=== PATIENT | female | born 1950 | race Caucasian/White ===

== ENCOUNTER 2020-12-04 18:38 | Observation (INO) | payer MEDICARE, SELFPAY ==
[2020-12-04] VITALS (34 sets, daily range): BP systolic 94–150; BP diastolic 50–94; PULSE 65–87; RESP 14–18; TEMP 36.2–36.8; O2SAT 86–99; BMI 28.6; BMI 28.7
[2020-12-04] MEDS: Lactated Ringers 1,000 ML 100 ML IV ×2 (06:57→14:39)
--- NOTE | 2020-12-04 08:00 | VOCOB_PTH ---
PATIENT: LUCÍA GOOD LOC: [facility] U#:[id number] AGE/SX: 70/F ROOM: PA315 RE12/04/[address]: Dr. 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 Moderate to focal severe squamous mucosal atypia. Negative for acid-fast bacilli and fungal organisms. See comment. AM:christian 12/07/2020 COMMENT AFB and GMS stains with matched controls were used in the evaluation of this case. Case has been reviewed in consultation with Dr. Saenz who concurs with the above diagnosis. IDC:SJ MICROSCOPIC DESCRIPTION Slides are reviewed. GROSS DESCRIPTION Received in fixative is one container labeled with the patient's name and designated right vocal cord. The specimen consists of multiple irregular fragments of light briggs soft tissue that in aggregate measure 0.1 x 0.1 x <0.1 cm. The specimen is totally submitted in one cassette. / AM:christian 12/04/20 TC:0 CPT: 45941, 07408 x2
--- NOTE | 2020-12-04 08:40 | PCM.OPRPT ---
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 This was excised and identified as an squamous cell carcinoma. She advised to return for definitive resection with CO2 laser and was agreeable to proceed. The risks, alternatives, potential complications, and benefits were discussed at length and any questions answered to the patient and/or caregiver's satisfaction. Witnessed informed consent was obtained in the office, and the patient and/or caregiver was agreeable to proceed. Procedure went as follows: The patient was identified in the preoperative holding and brought to the operating room, placed under general anesthesia, and intubated. When appropriate anesthesia was obtained, the head of bed was rotated and the patient prepped and draped in usual sterile fashion. A dental guard was then placed to protect the upper gums and the Dedo laryngoscope then introduced. Direct laryngoscopy was then carried out. The lateral posterior pharyngeal wall mucosa, tonsillar fossa, vallecula, piriforms, and epiglottis were noted to be normal in appearance. The true and false vocal folds were then brought into view. The patient was then placed in suspension and the operative microscope brought into the field. Using pledgets soaked in a 50-50 mixture of oxymetazoline and 4% topical lidocaine the true vocal folds were then topicalized. There is noted to be a friable lesion superficially along the midportion of the right true vocal fold. This was then removed with a cup forceps and sent for permanent pathologic specimen. The CO2 laser was then armed and after ensuring all the operating room staff had appropriate eye covering the surface mucosa of the right true vocal fold was then vaporized with the smoke evacuated with a suction. This extended from the anterior commissure superficially preserving the vocal ligament. Only superficial mucosal abnormality was noted and treatment with a resurfacing type procedure was performed. Upon completion the area was then topicalized with oxymetazoline 4% lidocaine soaked pledget. The pledgets were then removed and the patient taken out of suspension and returned to anesthesia, was revived, and extubated without complication having tolerated the procedure well. Surgeon: Leon Cid Type of Anesthesia: General Anesthesiologist: Jose Juan Jones Specimen's removed: right vocal fold lesion Drains: none Estimated Blood Loss (mL): 0 mL Fluids Replaced: 700 mL Grafts/Implants Used: none Complications none Admit VTE Documentation VTE Present on Admission: No VTE Mechan Device Prophylaxis: SCD's VTE Pharm Prophylaxis ordered?: No
[2020-12-04] MEDS: Lidocaine 4% 50 ML Bottle (08:45)
[2020-12-04] MEDS: Oxymetazoline 0.05% 1 SPRAY SPRAY.BTL 15 SPRAY (08:45)
--- NOTE | 2020-12-04 08:48 | PCM.DC ---
Discharge Instructions Diet Discharge Diet: No restrictions Activity Discharge Activity: Return to Normal Activity Dressing / Incision Call your doctor if you observe: Fever of 101 or Higher and Uncontrolled pain Follow Up Care Please Follow Up With: kourtney When: 2 weeks in [place] office Test Results: Test results from this visit will be discussed in further detail at your follow-up appointment, if applicable. Discharge Plan Admission Primary Reason for Your Visit: Carcinoma of right vocal fold Attending Provider: Leon Cid Discharge Orders/Prescriptions Prescriptions: Continued atorvastatin 40 mg tablet 40 mg PO QHS RF: 0 clopidogrel 75 mg tablet 75 mg PO DAILY RF: 0 omeprazole 40 mg Capsule,Delayed Release(Dr/Ec) 40 mg PO DAILY RF: 0 amitriptyline 50 mg tablet 50 mg PO QHS RF: 0 naproxen 500 mg Tablet,Delayed Release (Dr/Ec) 500 mg PO Q12H PRN (Reason: Pain) RF: 0 duloxetine 60 mg capsule,delayed release(DR/EC) 60 mg PO DAILY RF: 0 acetaminophen [Tylenol] 325 mg Capsule 325 mg PO Q6H PRN (Reason: Pain) RF: 0 cholecalciferol (vitamin D3) [Vitamin D3] 50 mcg (2,000 unit) Tablet 50 mcg PO DAILY RF: 0 Referrals / Follow Up: [facility] [Other] Disposition Discharge Orders: Discharge Patient (Routine); Ordered 12/04/20 Ordered By: Dr. Leon Cid
[2020-12-04] MEDS: Ipratropium/Albuterol Sulfate 3 ML AMPUL.NEB INHALATION (10:10)
--- NOTE | 2020-12-04 11:00 | RAD_ITS ---
STUDY: X-RAY CHEST REASON FOR EXAM: Female, 70 years old. Low spo2 postop TECHNIQUE: AP and lateral views of the chest. COMPARISON: None. FINDINGS: Mild increased markings at the lung bases suggestive of either linear atelectasis and/or scarring. There is no demonstrated pleural abnormality. There is moderate cardiac enlargement. Normal mediastinum and lori. Normal visualized pulmonary arteries. Normal visualized aortic arch and descending thoracic aorta. There are degenerative changes of the visualized thoracic spine. Normal visualized ribs, clavicles, and shoulders. Large hiatal hernia. RAD/Chest PA and Lateral IMPRESSION: Large hiatal hernia. Minimal increased markings at the lung bases suggestive of linear atelectasis and/or scarring. Electronically Signed: Rafi Oneill MD at 11:33 EDT , Service support ,
--- NOTE | 2020-12-04 11:27 | SUR.PHASEI ---
RETURNED TO PACU FROM RADIOLOGY AT 1120
[2020-12-04 13:10] LABS: Hematocrit 46.4 % (37-47); Hemoglobin 12.9 g/dL (12.0-15.0); Mean Corp Hgb Conc 27.8 g/dL (32-36); Mean Corpuscular Hgb 29.5 pg (27.0-32.0); Mean Corpuscular Volume 106.2 fL (81-99); Mean Platelet Vol. 11.3 fl (6.2-12.0); Platelet Count 173 K/mm3 (150-450); RBC Distribution Width SD 50.9 fl (35.1-43.9); Red Blood Count 4.37 M/mm3 (4.2-5.4); White Blood Count 6.3 K/mm3 (4.4-11.0)
[2020-12-04 15:53] LABS: D-Dimer Quantitative (DVT/PE) 2.03 FEU/ug/m (0.27-0.49)
--- NOTE | 2020-12-04 16:08 | SUR.PHASEII ---
WILL HOLD PT IN AC UNTIL PCR COVID RESULTED. NO SOB OCC COUGH
--- NOTE | 2020-12-04 16:37 | CT_ITS ---
EXAM: CT ANGIOGRAPHY CHEST WITHOUT AND WITH INTRAVENOUS CONTRAST : 1950 CLINICAL INDICATION: dyspnea TECHNIQUE: Helically acquired angiography images were obtained of the chest without and with intravenous contrast. This CT exam was performed using one or more of the following dose reduction techniques: automated exposure control, adjustment of the mA and/or kV according to patient size, and/or use of iterative reconstruction technique. This report was created using [employer] report generation technology. MIP reconstructed images were created and reviewed. CONTRAST: IV 100mL Isovue-370 COMPARISON: None. FINDINGS: PULMONARY ARTERIES: Unremarkable. Normal in caliber. No evidence of pulmonary embolism. AORTA: Patient has a right-sided aortic arch which is an anatomic variant. Normal in caliber. No evidence of dissection. GREAT VESSELS OF AORTIC ARCH: Unremarkable. Normal in caliber. No evidence of dissection. LUNGS AND PLEURAL SPACES: There is consolidation in the left lower lobe which may represent atelectasis. No mass. No pleural effusion or thickening. No pneumothorax. HEART: Unremarkable. Heart size is normal. No pericardial effusion. No signs of right heart strain. MEDIASTINUM: There is a large hiatal hernia. No mediastinal or hilar adenopathy. Esophagus is unremarkable. THYROID: Unremarkable. No thyroid lesions. BONES/JOINTS: Unremarkable. No suspicious lytic or blastic abnormality. CT/CTA Chest W/WO Contrast IMPRESSION: 1. No evidence of pulmonary embolus. 2. Large hiatal hernia. There is consolidation of the left base compatible with atelectasis. 3. Right-sided aortic arch. Individualized dose optimization techniques were used for this CT. at 1832 Reported and signed by: Dario Samayoa MD Electronically Signed: Dario Samayoa MD at 18:30 EDT Tel , Service support ,
[2020-12-04 17:28] LABS: Anion Gap 7 (5-15); BUN 12 mg/dL (7-18); BUN/Creat Ratio 13.9 RATIO (10-20); Calcium,Total 8.9 mg/dL (8.5-10.1); Chloride 108 mmol/L (98-107); Creatinine, Serum 0.86 mg/dL (0.55-1.02); EST Glomerular Filtration Rate 69 mL/min (>60); Est Glom Filt Rate - Afr Amer 84 mL/min (>60); Estimated Creatinine Clearance 51.79 ml/min; Glucose 155 mg/dL (74-106); Potassium 4.1 mmol/L (3.5-5.1); Sodium Level 141 mmol/L (136-145)
--- NOTE | 2020-12-04 18:38 | HP.PCM.HOS_ITS ---
HPI - General General Date of Admission: 12/04/20 Date of Service: 12/04/20 Chief Complaint: hypoxia HPI Narrative LUCÍA GOOD, is a 70 F who presents hypoxia. Today, the patient underwent CO2 laser excision of right true vocal cord fold carcinoma. In the PACU, patient was noted to be hypoxic and even with ambulation patient was even worse and was tachycardic. Patient was symptomatic 2. Patient does note that she has had a history of shortness of breath but upon discussing with Dr. Cid, patient was stable when she was initially evaluated. They will monitor the patient in the PACU for several hours and patient's oxygenation would fluctuate and she would become hypoxic just with talking while in bed. The hospital service was contacted for admission because of the hypoxia and patient does not have any oxygen at home. COUNT INCLUDES THE [facility] Medical History Anemia Arthritis Cancer Cerebral vasculitis Chronic cough COPD (chronic obstructive pulmonary disease) Emphysema, unspecified Former smoker Gastric reflux History of hiatal hernia History of left foot drop Hoarseness Injury of head and neck Shortness of breath on exertion Stroke/cerebrovascular accident Wears glasses Wears partial dentures Home Medications acetaminophen [Tylenol] 325 mg PO Q6H PRN 11/26/20 [History Last Taken Unknown] amitriptyline 50 mg PO QHS 11/26/20 [History Last Taken Unknown] atorvastatin 40 mg PO QHS 11/26/20 [History Last Taken Unknown] cholecalciferol (vitamin D3) [Vitamin D3] 50 mcg PO DAILY 11/26/20 [History Last Taken Unknown] clopidogrel 75 mg PO DAILY 11/26/20 [History Last Taken Unknown] duloxetine 60 mg PO DAILY 11/26/20 [History Last Taken Unknown] naproxen 500 mg PO Q12H PRN 11/26/20 [History Last Taken Unknown] omeprazole 40 mg PO DAILY 11/26/20 [History Last Taken Unknown] Allergy/AdvReac Type Severity Reaction Status Date / Time methadone Allergy Swelling Verified 12/04/20 06:50 pregabalin [From Lyrica] Allergy Swelling Verified 12/04/20 06:50 Surgical History History of surgery on arm History of vocal cord polypectomy Hx of colonoscopy Hx of foot operation Hx of hysterectomy Hx of skin graft Social History Smoking Status: Former smoker ROS ROS Narrative All review of systems were negative except as mentioned above in the history of present illness and the other review of systems. Vital Signs Vital Signs Vital Signs: 12/04/20 06:51 12/04/20 09:00 12/04/20 09:15 Temperature 36.2 C L 36.2 C L Temperature Source Temporal Temporal Pulse Rate 66 66 67 Respiratory Rate 16 14 16 Respiratory Pattern Normal Normal Blood Pressure 135/66 H 150/90 H 127/73 H Blood Pressure Mean 89 110 91 Blood Pressure Source Monitor Monitor Blood Pressure Position Semi-Fowlers Semi-Fowlers Semi-Fowlers Blood Pressure Location Right Arm Right Arm Right Arm Baseline BP 135/66 135/66 Pulse Ox 98 94 95 Oxygen Delivery Method Room Air Simple Mask Nasal Cannula Oxygen Flow Rate (L/min) 8 4 12/04/20 09:30 12/04/20 09:45 12/04/20 10:00 Temperature Temperature Source Pulse Rate 77 76 70 Respiratory Rate 16 16 16 Respiratory Pattern Blood Pressure 127/85 H 105/62 116/65 Blood Pressure Mean 99 76 82 Blood Pressure Source Monitor Monitor Monitor Blood Pressure Position Semi-Fowlers Semi-Fowlers Semi-Fowlers Blood Pressure Location Right Arm Right Arm Right Arm Baseline BP 135/66 135/66 135/66 Pulse Ox 91 91 90 Oxygen Delivery Method Nasal Cannula Nasal Cannula Nasal Cannula Oxygen Flow Rate (L/min) 4 4 4 12/04/20 10:10 12/04/20 10:15 12/04/20 10:30 Temperature Temperature Source Pulse Rate 69 67 65 Respiratory Rate 16 14 16 Respiratory Pattern Normal Blood Pressure 116/68 95/50 L Blood Pressure Mean 84 65 Blood Pressure Source Monitor Monitor Blood Pressure Position Semi-Fowlers Semi-Fowlers Blood Pressure Location Right Arm Right Arm Baseline BP 135/66 135/66 Pulse Ox 98 94 Oxygen Delivery Method Simple Mask Nasal Cannula Oxygen Flow Rate (L/min) 10 6 12/04/20 10:45 12/04/20 11:00 12/04/20 11:15 Temperature Temperature Source Pulse Rate 69 72 70 Respiratory Rate 16 16 14 Respiratory Pattern Blood Pressure 98/62 126/78 H 132/60 H Blood Pressure Mean 74 94 84 Blood Pressure Source Monitor Monitor Monitor Blood Pressure Position Semi-Fowlers Semi-Fowlers Semi-Fowlers Blood Pressure Location Right Arm Right Arm Right Arm Baseline BP 135/66 135/66 135/66 Pulse Ox 90 91 92 Oxygen Delivery Method Nasal Cannula Nasal Cannula Nasal Cannula Oxygen Flow Rate (L/min) 4 4 4 12/04/20 11:20 12/04/20 11:30 12/04/20 11:45 Temperature Temperature Source Pulse Rate 74 72 72 Respiratory Rate 16 16 16 Respiratory Pattern Blood Pressure 121/63 H 122/75 H 131/67 H Blood Pressure Mean 82 90 88 Blood Pressure Source Monitor Monitor Monitor Blood Pressure Position Semi-Fowlers Semi-Fowlers Semi-Fowlers Blood Pressure Location Right Arm Right Arm Right Arm Baseline BP 135/66 135/66 135/66 Pulse Ox 97 93 92 Oxygen Delivery Method Room Air Nasal Cannula Nasal Cannula Oxygen Flow Rate (L/min) 2 2 12/04/20 12:00 12/04/20 12:15 12/04/20 12:30 Temperature Temperature Source Pulse Rate 77 82 79 Respiratory Rate 16 16 16 Respiratory Pattern Blood Pressure 120/76 94/78 113/94 H Blood Pressure Mean 90 83 100 Blood Pressure Source Monitor Monitor Monitor Blood Pressure Position Semi-Fowlers Semi-Fowlers Semi-Fowlers Blood Pressure Location Right Arm Right Arm Right Arm Baseline BP 135/66 135/66 135/66 Pulse Ox 86 95 88 Oxygen Delivery Method Room Air Nasal Cannula Room Air Oxygen Flow Rate (L/min) 2 12/04/20 12:45 12/04/20 13:00 12/04/20 13:15 Temperature Temperature Source Pulse Rate 80 82 81 Respiratory Rate 16 16 16 Respiratory Pattern Blood Pressure 113/76 111/74 131/67 H Blood Pressure Mean 88 86 88 Blood Pressure Source Monitor Monitor Monitor Blood Pressure Position Semi-Fowlers Semi-Fowlers Semi-Fowlers Blood Pressure Location Right Arm Right Arm Right Arm Baseline BP 135/66 135/66 135/66 Pulse Ox 86 95 97 Oxygen Delivery Method Room Air Nasal Cannula Nasal Cannula Oxygen Flow Rate (L/min) 2 2 12/04/20 13:30 12/04/20 13:45 12/04/20 14:00 Temperature Temperature Source Pulse Rate 78 79 86 Respiratory Rate 16 18 16 Respiratory Pattern Blood Pressure 129/74 H 118/58 L 111/74 Blood Pressure Mean 92 78 86 Blood Pressure Source Monitor Monitor Monitor Blood Pressure Position Semi-Fowlers Semi-Fowlers Semi-Fowlers Blood Pressure Location Right Arm Right Arm Right Arm Baseline BP 135/66 135/66 135/66 Pulse Ox 97 98 93 Oxygen Delivery Method Nasal Cannula Nasal Cannula Room Air Oxygen Flow Rate (L/min) 2 12/04/20 14:15 12/04/20 14:30 12/04/20 14:45 Temperature Temperature Source Pulse Rate 84 86 82 Respiratory Rate 16 16 16 Respiratory Pattern Blood Pressure 117/74 125/93 H 123/71 H Blood Pressure Mean 88 103 88 Blood Pressure Source Monitor Monitor Monitor Blood Pressure Position Semi-Fowlers Semi-Fowlers Semi-Fowlers Blood Pressure Location Right Arm Right Arm Right Arm Baseline BP 135/66 135/66 135/66 Pulse Ox 92 92 91 Oxygen Delivery Method Room Air Room Air Room Air Oxygen Flow Rate (L/min) 12/04/20 15:00 12/04/20 15:15 12/04/20 15:30 Temperature Temperature Source Pulse Rate 78 74 76 Respiratory Rate 16 16 16 Respiratory Pattern Blood Pressure 105/70 104/68 104/68 Blood Pressure Mean 81 80 80 Blood Pressure Source Monitor Monitor Monitor Blood Pressure Position Semi-Fowlers Semi-Fowlers Semi-Fowlers Blood Pressure Location Right Arm Right Arm Right Arm Baseline BP 135/66 135/66 135/66 Pulse Ox 88 96 94 Oxygen Delivery Method Room Air Nasal Cannula Nasal Cannula Oxygen Flow Rate (L/min) 3 2 12/04/20 15:45 12/04/20 16:48 12/04/20 18:00 Temperature 36.4 C L Temperature Source Temporal Pulse Rate 81 87 Respiratory Rate 16 16 Respiratory Pattern Normal Blood Pressure 123/68 H 145/85 H Blood Pressure Mean 86 105 Blood Pressure Source Monitor Monitor Blood Pressure Position Semi-Fowlers Semi-Fowlers Blood Pressure Location Right Arm Right Arm Baseline BP 135/66 135/66 Pulse Ox 94 95 Oxygen Delivery Method Nasal Cannula Nasal Cannula Oxygen Flow Rate (L/min) 2 3 Weight Weight: 73.4 kg Body Mass Index (BMI) 28.6 Physical Exam Const alert HEENT normocephalic Eyes PERRL Resp normal respiratory effort and clear to auscultation bilaterally Cardio regular rate, regular rhythm, S1 normal heart sound and S2 normal heart sound GI normal to inspection, nondistended, normoactive bowel sounds, non-tender and n on-distended Extremity normal to inspection Neuro Sensorium / Orientation: awake and alert Results Lab / Micro Data Attestation: I reviewed the patient's lab results. Result Diagrams: 12/04/20 13:03 12/04/20 15:05 Labs: Laboratory Results - last 24 hr 12/04/20 12/04/20 12/04/20 13:03 15:05 15:05 WBC 6.3 RBC 4.37 Hgb 12.9 Hct 46.4 MCV 106.2 H MCH 29.5 MCHC 27.8 L RDW Std Deviation 50.9 H RDW Coeff of Maryellen 13.0 Plt Count 173 MPV 11.3 D-Dimer Quant (PE/DVT) 2.03 H* Sodium Potassium Chloride Carbon Dioxide Anion Gap BUN Creatinine Estim Creat Clear Calc Est GFR (MDRD) Af Amer Est GFR (MDRD) Non-Af BUN/Creatinine Ratio Glucose Calcium Troponin I < 0.015 COVID-19 ([facility]) 12/04/20 12/04/20 15:05 16:05 WBC RBC Hgb Hct MCV MCH MCHC RDW Std Deviation RDW Coeff of Maryellen Plt Count MPV D-Dimer Quant (PE/DVT) Sodium 141 Potassium 4.1 Chloride 108 H Carbon Dioxide 26.0 Anion Gap 7 BUN 12 Creatinine 0.86 Estim Creat Clear Calc 51.79 Est GFR (MDRD) Af Amer 84 Est GFR (MDRD) Non-Af 69 BUN/Creatinine Ratio 13.9 Glucose 155 H Calcium 8.9 Troponin I COVID-19 ([facility]) Not Detected Radiology Impression Chest X-Ray 12/04/20 11:00 IMPRESSION: Large hiatal hernia. Minimal increased markings at the lung bases suggestive of linear atelectasis and/or scarring. Electronically Signed: Rafi Oneill MD at 11:33 EDT , Service support , Chest CTA 12/04/20 16:37 IMPRESSION: 1. No evidence of pulmonary embolus. 2. Large hiatal hernia. There is consolidation of the left base compatible with atelectasis. 3. Right-sided aortic arch. Individualized dose optimization techniques were used for this CT. at 1832 Reported and signed by: Dario Samayoa MD Electronically Signed: Dario Samayoa MD at 18:30 EDT Tel , Service support , Assessment & Plan Assessment/Plan (1) Hypoxia: (2) Squamous cell carcinoma of larynx: PLAN: 1. Hypoxia * This is probably more of a chronic process. * Patient was checked for COVID-19 and that was negative. D-dimer is elevated and patient did undergo a CT angiogram of the chest that did not show any pul monary embolism or any other acute process. Patient does have a large hiatal hernia which is likely complicating part of this. Also patient does have a COPD but not currently in exacerbation. * Patient's oxygenation just with talking with dropped down to the mid 80s on room air. * Plan is check an amatory pulse ox and if her oxygen still low requiring oxygen then she will need to be discharged with oxygen. I do not feel that there is anything at this time to warrant additional treatment. 2. Laryngeal cancer * Status post CO2 laser excision by Dr. Cid * Patient to follow-up with Dr. Tabor in the office in 2 weeks time. 3. VTE prophylaxis: Not indicated given observation status. 4. Health maintenance: Patient has not been vaccinated against COVID-19. Patient is very adamant that she would not want the vaccine. Myself and Dr. Cid both recommended for her as if she were to contract it she has a higher likelihood of having more severe complications with that as compared to other patients without her underlying lung disease. She initially states that she has multiple allergies but her allergies are light looked at her only to methadone and Lyrica. I would suspect that her noting multiple medication allergies is more of just some excuse so that she does not get the vaccine. Charges/Coding Visit Charges OBSV E&M: 47928 Initial observation care L2
[2020-12-04] MEDS: Atorvastatin Calcium 40 MG Tablet PO (21:01)
[2020-12-04] MEDS: Amitriptyline 25 MG Tablet 50 MG PO (21:01)
[2020-12-05 03:28] VITALS: BP 98/60; PULSE 62; RESP 16; TEMP 36.5; O2SAT 98; BMI 28.7
[2020-12-05 06:26] VITALS: O2SAT 95
[2020-12-05 06:27] VITALS: O2SAT 93
[2020-12-05 08:14] VITALS: BP 110/58; PULSE 65; RESP 18; TEMP 36.9; O2SAT 93
[2020-12-05] MEDS: Cholecalciferol (VIT D3) 25 MCG TABLET (1,000 UNITS) 50 MCG PO (09:34)
[2020-12-05] MEDS: DULoxetine Hcl 60 MG Capsule PO (09:34)
[2020-12-05] MEDS: Clopidogrel Bisulfate 75 MG Tablet PO (09:35)
[2020-12-05] MEDS: Pantoprazole Sodium 40 MG Tablet PO (09:35)
[2020-12-05 09:44] VITALS: O2SAT 94
--- NOTE | 2020-12-05 10:26 | PCM.DC ---
Discharge Instructions Diet Discharge Diet: No restrictions Activity Discharge Activity: Return to Normal Activity Dressing / Incision Call your doctor if you observe: Fever of 101 or Higher, Shortness of breath, Dizziness, Fainting spells, Chest pain, Increased palpitations (irregular heartbeat) and Uncontrolled pain Follow Up Care Please Follow Up With: kourtney Test Results: Test results from this visit will be discussed in further detail at your follow-up appointment, if applicable. Discharge Plan Admission Admit Date/Time: 12/04/20 18:38 Primary Reason for Your Visit: Carcinoma of right vocal fold Attending Provider: Leon Cid Consulting Providers: Leon Jacinto Discharge Orders/Prescriptions Prescriptions: New albuterol sulfate 90 mcg/actuation HFA aerosol inhaler 2 puff inhalation Q6H PRN (Reason: shortness of breath or wheezing) Qty: 6.7 RF: 1 Spiriva with HandiHaler 18 mcg capsule, w/inhalation device 1 cap inhalation DAILY Qty: 30 RF: 0 Continued atorvastatin 40 mg tablet 40 mg PO QHS RF: 0 clopidogrel 75 mg tablet 75 mg PO DAILY RF: 0 omeprazole 40 mg Capsule,Delayed Release(Dr/Ec) 40 mg PO DAILY RF: 0 amitriptyline 50 mg tablet 50 mg PO QHS RF: 0 naproxen 500 mg Tablet,Delayed Release (Dr/Ec) 500 mg PO Q12H PRN (Reason: Pain) RF: 0 duloxetine 60 mg capsule,delayed release(DR/EC) 60 mg PO DAILY RF: 0 acetaminophen [Tylenol] 325 mg Capsule 325 mg PO Q6H PRN (Reason: Pain) RF: 0 cholecalciferol (vitamin D3) [Vitamin D3] 50 mcg (2,000 unit) Tablet 50 mcg PO DAILY RF: 0 Referrals / Follow Up: [facility] [Other] (Follow-up with your PCP in 1 to 2 weeks.) Leon Cid MD [STAFF PHYSICIAN] - In 1 Week Disposition Disposition (needs filled in before D/C Order can be placed): Home, self care
--- NOTE | 2020-12-05 11:59 | PCM.DC.SUM ---
Providers Date of Admission: 12/04/20 Primary Care Physician: SANTOSH OVALLE Consultations 12/04/20 14:57 Consult: Hospitalist Routine Consulting Provider: Leon Jacinto Reason for Consult: post op hypxia EMERGENT Consult: No MD Notified: Yes Date Notified: 12/04/20 Time Notified: 14:58 Method of Notification: Provider Initiated Method of Consult:: In-Person Reason For Visit: LARYNGOSCOPY WITH C02 LASER OF VOCAL CORDS Diagnosis Discharge Diagnosis (1) Hypoxia: Status: Acute Code(s): R09.02 - Hypoxemia (2) Squamous cell carcinoma of larynx: Status: Acute Code(s): C32.9 - Malignant neoplasm of larynx, unspecified Medications at Discharge Home Medications acetaminophen [Tylenol] 325 mg PO Q6H PRN 11/26/20 amitriptyline 50 mg PO QHS 11/26/20 atorvastatin 40 mg PO QHS 11/26/20 cholecalciferol (vitamin D3) [Vitamin D3] 50 mcg PO DAILY 11/26/20 clopidogrel 75 mg PO DAILY 11/26/20 duloxetine 60 mg PO DAILY 11/26/20 naproxen 500 mg PO Q12H PRN 11/26/20 omeprazole 40 mg PO DAILY 11/26/20 albuterol sulfate 2 puff INHALATION Q6H PRN #6.7 g 12/05/20 tiotropium bromide [Spiriva with HandiHaler] 1 cap INHALATION DAILY #30 inh 12/05/20 Hospital Course Operations - (CO2 laser excision of right true vocal cord.) Procedures None Summary of Care Provided Minutes Spent on Discharge: 25 Hospital Course: This is a 70 years old female patient underwent elective CO2 laser excision of right true vocal cord for 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 Patient does have a history of COPD that was diagnosed officially but she is not taking any treatment for it. She thinks that inhalers what caused her vocal cord problems. I explained to her that COPD inhalers might cause oral thrush, sore mouth or sore taste but does not cause cancer. Regarding her laryngeal cancer, this went very well without significant complications. She was admitted to the floor for observation, started on bronchodilators. Chest x-ray done and showed no acute findings. She was found to have elevated D-dimer for which CTA chest done and showed no PE or dissection, revealed large hiatal hernia. On the day of discharge, patient felt better. Ambulatory pulse ox performed and her pulse ox was 95% on room air with ambulation. Patient discharged home in a stable medical condition, started on albuterol inhaler as needed, Spiriva HandiHaler daily, continued on her previous medications without any changes, recommended follow-up with PCP in 1 to 2 weeks and follow-up with ENT within 1 week. Physical Exam Const alert, oriented x3, no apparent distress and no limitations General Appearance: cooperative HEENT normocephalic, head/scalp atraumatic, external ears normal and external nose normal Eyes PERRL, EOMs intact bilaterally, conjunctivae normal and no scleral icterus Neck no lymphadenopathy, supple, no meningeal signs, no JVD and no carotid bruits Lymph Lymphatic: no lymphadenopathy noted Resp normal respiratory effort, normal air movement and clear to auscultation bilaterally Auscultation: Negative for crackles, rales, rhonchi or wheezes Cardio regular rate, regular rhythm, S1 normal heart sound, S2 normal heart sound, no murmurs and no JVD GI normal to inspection, nondistended, normoactive bowel sounds, soft to palpation, non-tender and non-distended; Negative for hepatosplenomegaly Extremity normal to inspection, full ROM and no clubbing, cyanosis or edema Skin no rashes or lesions noted, no wounds and no petechiae Neuro oriented x3, CN's II-XII intact bilaterally and moves all extremities Sensorium / Orientation: alert Speech: speech normal Motor Exam: strength 5/5 throughout Psych mental status grossly normal, affect normal and denies hallucinations Weight / BMI Weight Weight: 161 lb 13.109 oz Body Mass Index (BMI) 28.6 ABG / Lab / Microbiology Data Result Diagrams: 12/04/20 13:03 12/04/20 15:05 Laboratory: Laboratory Results - last 24 hr 12/04/20 12/04/20 12/04/20 13:03 15:05 15:05 WBC 6.3 RBC 4.37 Hgb 12.9 Hct 46.4 MCV 106.2 H MCH 29.5 MCHC 27.8 L RDW Std Deviation 50.9 H RDW Coeff of Maryellen 13.0 Plt Count 173 MPV 11.3 D-Dimer Quant (PE/DVT) 2.03 H* Sodium Potassium Chloride Carbon Dioxide Anion Gap BUN Creatinine Estim Creat Clear Calc Est GFR (MDRD) Af Amer Est GFR (MDRD) Non-Af BUN/Creatinine Ratio Glucose Calcium Troponin I < 0.015 COVID-19 ([facility]) 12/04/20 12/04/20 15:05 16:05 WBC RBC Hgb Hct MCV MCH MCHC RDW Std Deviation RDW Coeff of Maryellen Plt Count MPV D-Dimer Quant (PE/DVT) Sodium 141 Potassium 4.1 Chloride 108 H Carbon Dioxide 26.0 Anion Gap 7 BUN 12 Creatinine 0.86 Estim Creat Clear Calc 51.79 Est GFR (MDRD) Af Amer 84 Est GFR (MDRD) Non-Af 69 BUN/Creatinine Ratio 13.9 Glucose 155 H Calcium 8.9 Troponin I COVID-19 ([facility]) Not Detected Radiography Diagnostic Testing: Radiology Impression Chest CTA 12/04/20 16:37 IMPRESSION: 1. No evidence of pulmonary embolus. 2. Large hiatal hernia. There is consolidation of the left base compatible with atelectasis. 3. Right-sided aortic arch. Individualized dose optimization techniques were used for this CT. at 1832 Reported and signed by: Dario Samayoa MD Electronically Signed: Dario Samayoa MD at 18:30 EDT Tel , Service support , D/C Instructions Discharge Diet: No restrictions Call your doctor if you observe: Fever of 101 or Higher, Shortness of breath, Dizziness, Fainting spells, Chest pain, Increased palpitations (irregular heartbeat) and Uncontrolled pain Please Follow Up With: kourtney When: 2 weeks in [place] office Meaningful Use Info Meaningful Use Diagnoses (Choose all that apply): None applicable Discharge Plan Admission Admit Date/Time: 12/04/20 18:38 Primary Reason for Your Visit: Carcinoma of right vocal fold Attending Provider: Leon Cid Consulting Providers: Leon Jacinto Discharge Orders/Prescriptions Prescriptions: New albuterol sulfate 90 mcg/actuation HFA aerosol inhaler 2 puff inhalation Q6H PRN (Reason: shortness of breath or wheezing) Qty: 6.7 RF: 1 Spiriva with HandiHaler 18 mcg capsule, w/inhalation device 1 cap inhalation DAILY Qty: 30 RF: 0 Continued atorvastatin 40 mg tablet 40 mg PO QHS RF: 0 clopidogrel 75 mg tablet 75 mg PO DAILY RF: 0 omeprazole 40 mg Capsule,Delayed Release(Dr/Ec) 40 mg PO DAILY RF: 0 amitriptyline 50 mg tablet 50 mg PO QHS RF: 0 naproxen 500 mg Tablet,Delayed Release (Dr/Ec) 500 mg PO Q12H PRN (Reason: Pain) RF: 0 duloxetine 60 mg capsule,delayed release(DR/EC) 60 mg PO DAILY RF: 0 acetaminophen [Tylenol] 325 mg Capsule 325 mg PO Q6H PRN (Reason: Pain) RF: 0 cholecalciferol (vitamin D3) [Vitamin D3] 50 mcg (2,000 unit) Tablet 50 mcg PO DAILY RF: 0 Referrals / Follow Up: SANTOSH OVALLE [Other] (Follow-up with your PCP in 1 to 2 weeks.) Leon Cid MD [STAFF PHYSICIAN] - In 1 Week Disposition Disposition (needs filled in before D/C Order can be placed): Home, self care Charges/Coding Visit Charges OBSV E&M: 85638 Observation care discharge
== END 2020-12-05 11:56 | disposition home or self-care (01) ==
LOC: SDC 19:07 → MS3 19:07
PROVIDERS: Anesthesiology; Admitting Provider Otolaryngology; Referring Provider Otolaryngology; Visit Provider Otolaryngology
PROC: 0C5S8ZZ Destruction of Larynx, Via Natural or Artificial Opening Endoscopic (ICD-10-PCS; CPT 31572; principal; 2020-12-04 07:50)
DX: C32.9 Malignant neoplasm of larynx, unspecified (principal); Z87.891 Personal history of nicotine dependence; R49.0 Dysphonia; R09.02 Hypoxemia; R00.0 Tachycardia, unspecified; J43.9 Emphysema, unspecified; K21.9 Gastro-esophageal reflux disease without esophagitis; M19.90 Unspecified osteoarthritis, unspecified site; Z79.899 Other long term (current) drug therapy; Z79.02 Long term (current) use of antithrombotics/antiplatelets; K44.9 Diaphragmatic hernia without obstruction or gangrene
CPT/HCPCS: 00320; 31541; 71046; 71275; 80048; 84484; 85027; 85379; 87635; 88305; 88312; 93005; 94640; 96360; 96361; 99218; J7120; Q9967; U0005; G0378; G0379; J2405; Q9968; U0003